=== PATIENT | female | born 1990 | race Caucasian/White ===

== ENCOUNTER 2017-03-15 23:51 | Emergency (ER) | payer SELFPAY ==
[~2017-03-15] VITALS: Ht 172.7 cm; Wt 78.2 kg
[~2017-03-15 23:51] MED LIST: LANTUS 10100 UNITS/ SC; LEVEMIR FL100 UNIT/1 SC; NOVOLOG 10100 UNITS/ SC; NOVOLOG PE100 UNITS/ SC; ONE TOUCH LANC1 EACH MC; PEN NEEDLE1 EAC9 MC; TEST STRIPS MC
[2017-03-16 00:47] LABS: HEMATOCRIT 36.1 % (36.0-46.0); MCH 28.4 PG (29.0-34.0); MCV 86.2 FL (83-99); MEAN PLAT.VOLUME 9.8 uM^3 (9.5-12.4); PLATELET COUNT 253 K/uL (156-360); RBC DIS.WIDTH-CV 12.3 % (11.8-14.6); RBC DIS.WIDTH-SD 38.5 % (39-53); RED BLOOD COUNT 4.19 M/uL (3.80-5.20); WHITE BLOOD COUNT 11.4 K/uL (4.1-10.2)
[2017-03-16 01:00] LABS: CHLORIDE 101 mEq/L (99-109); POTASSIUM 3.5 mEq/L (3.7-5.4); SODIUM 138 mEq/L (136-147)
[2017-03-16 01:02] LABS: GLUCOSE 135 mg/dL (70-99)
[2017-03-16 01:03] LABS: ANION GAP 10 MEQ/L (2-14); D-DIMER ELISA 3.87 mg/L FEU (< 0.57)
[2017-03-16 01:06] LABS: GFR ESTIMATE (CALCULATED) > 59 mL/min/; UREA NITROGEN (BUN) 18 mg/dL (9-23)
[2017-03-16 01:13] LABS: QUANTITATIVE HCG < 4.0 MIU/ML
[2017-03-16 01:14] LABS: TROP-I INTERPRETATION NEGATIVE; TROPONIN-I < 0.01 ng/mL (0.0-0.30)
[2017-03-16 02:23] VITALS: BP 130/90
== END 2017-03-16 02:24 | disposition home or self-care (01) ==
LOC: EME 23:51
PROVIDERS: Nurse Practitioner Family
DX: R09.1 Pleurisy (principal); I10 Essential (primary) hypertension; E11.9 Type 2 diabetes mellitus without complications; Z79.4 Long term (current) use of insulin; E78.5 Hyperlipidemia, unspecified; F17.200 Nicotine dependence, unspecified, uncomplicated
CPT/HCPCS: 71020; 71275; 80048; 84484; 84702; 85027; 85379; 93005; 99281; 99285; J7030

== ENCOUNTER 2017-04-10 12:19 | Emergency (ER) | payer OTHER ==
[~2017-04-10] VITALS: Ht 172.7 cm; Wt 71.8 kg
[2017-04-10 13:09] LABS: POINT-OF-CARE METER ID UU13113778
[2017-04-10 13:27] LABS: ADD MIUA? YES; BILIRUBIN NEGATIVE; BLOOD SMALL; COLOR YELLOW ((YELLOW)); GLUCOSE (STRIP) >=500; KETONES 80; LEUKOCYTES NEGATIVE; NITRITE NEGATIVE; PROTEIN (STRIP) >=500; SPECIFIC GRAVITY 1.028 (1.000-1.030); UROBILINOGEN 0.2 MG/DL (0.2-1.0)
[2017-04-10 13:39] LABS: HEMATOCRIT 45.1 % (36.0-46.0); MCH 28.1 PG (29.0-34.0); MCHC 32.8 G/DL (30.0-36.0); MCV 85.6 FL (83-99); PLATELET COUNT 302 K/uL (156-360); RBC DIS.WIDTH-CV 12.8 % (11.8-14.6); RBC DIS.WIDTH-SD 39.7 % (39-53); RED BLOOD COUNT 5.27 M/uL (3.80-5.20); WHITE BLOOD COUNT 16.6 K/uL (4.1-10.2)
[2017-04-10 13:43] LABS: BACTERIA RARE /HPF; EPITHELIAL CELLS 1+ /HPF; MUCUS TRACE /LPF; UCUL ADDED? NO; WHITE BLOOD CELLS 0-5 /HPF (0-5)
[2017-04-10 13:46] LABS: CHLORIDE 85 mEq/L (99-109); POTASSIUM 3.7 mEq/L (3.7-5.4); SODIUM 133 mEq/L (136-147)
[2017-04-10 13:49] LABS: GLUCOSE 356 mg/dL (70-99)
[2017-04-10 13:50] LABS: ANION GAP 19 MEQ/L (2-14)
[2017-04-10 13:51] LABS: TOTAL BILIRUBIN 0.3 mg/dL (0.0-1.0)
[2017-04-10 13:52] LABS: ALKALINE PHOSPHATASE 111 IU/L (3-129); GFR ESTIMATE (CALCULATED) 58 mL/min/
[2017-04-10 13:53] LABS: UREA NITROGEN (BUN) 15 mg/dL (9-23)
[2017-04-10 14:04] LABS: QUANTITATIVE HCG < 4.0 MIU/ML
[2017-04-10 14:57] LABS: CARBON DIOXIDE (BICARBONATE) 36.2 MEQ/L (20-31)
[2017-04-10 16:35] LABS: LIPASE 4 U/L (1.0-51.0)
[2017-04-10 17:53] LABS: POINT-OF-CARE METER ID UU13113800; POINT-OF-CARE USER ID LABGLH01
[2017-04-10] MEDS ORDERED: ZOFRAN ODT4 MG PO (17:53)
[2017-04-10 18:42] LABS: POINT-OF-CARE METER ID UU13113800; POINT-OF-CARE USER ID LABGLH01
[2017-04-10 18:46] VITALS: BP 126/76
== END 2017-04-10 18:59 | disposition home or self-care (01) ==
LOC: EME 12:19
PROVIDERS: Nurse Practitioner Family
DX: E13.10 Other specified diabetes mellitus with ketoacidosis without coma (principal); R10.31 Right lower quadrant pain; R11.2 Nausea with vomiting, unspecified; I10 Essential (primary) hypertension; E78.5 Hyperlipidemia, unspecified; Z79.84 Long term (current) use of oral hypoglycemic drugs; Z79.4 Long term (current) use of insulin; F17.200 Nicotine dependence, unspecified, uncomplicated
CPT/HCPCS: 74177; 80053; 81003; 82010; 82803; 82948; 83690; 84702; 85027; 99281; 99285; J2405; J7030

== ENCOUNTER → 2017-06-10 | Outpatient (CLI) | payer OTHER ==
[~2017-06-10] MED LIST changes: +METHADONE HCL40 MG PO; +SYNTHROID75 MCG PO; +ZOFRAN ODT4 MG PO
== END | disposition home or self-care (01) ==
LOC: CDC
DX: Z01.810 Encounter for preprocedural cardiovascular examination (principal)
CPT/HCPCS: 93000

== ENCOUNTER 2017-06-11 11:41 | Day surgery (SDC) | payer OTHER ==
[~2017-06-11] VITALS: Ht 172.7 cm; Wt 72.6 kg
[~2017-06-11 11:41] MED LIST changes: -METHADONE HCL40 MG PO
[2017-06-11 12:01] VITALS: BP 146/96
[2017-06-11] MEDS ORDERED: METHADONE HCL40 MG PO (12:11)
[2017-06-11 12:16] LABS: POINT-OF-CARE METER ID UU14174212
[2017-06-11 16:32] LABS: POINT-OF-CARE METER ID UU13113675
[2017-06-11 17:16] VITALS: BP 138/87
[2017-06-11 18:15] VITALS: BP 130/80
== END 2017-06-11 18:50 | disposition home or self-care (01) ==
LOC: SDC
PROVIDERS: Ophthalmology
DX: E11.3521 Type 2 diabetes mellitus with proliferative diabetic retinopathy with traction retinal detachment involving the macula, right eye (principal); H43.311 Vitreous membranes and strands, right eye; H43.11 Vitreous hemorrhage, right eye
CPT/HCPCS: 82948; J0690; J0713; J2405; J2765; J3010

== ENCOUNTER 2017-08-07 08:39 | Day surgery (SDC) | payer OTHER ==
[~2017-08-07] VITALS: Ht 172.7 cm; Wt 77.0 kg
[~2017-08-07 08:39] MED LIST changes: +METHADONE HCL40 MG PO
[2017-08-07] MEDS ORDERED: LEVOTHYROXINE88 MCG PO (09:06)
[2017-08-07] MEDS ORDERED: METHAZOLAMIDE50 MG PO (09:07)
[2017-08-07 09:15] VITALS: BP 115/88
[2017-08-07 09:19] LABS: POINT-OF-CARE METER ID UU14174212
[2017-08-07 10:39] LABS: POINT-OF-CARE METER ID UU14174212
[2017-08-07 12:31] LABS: POINT-OF-CARE METER ID UU13113675
[2017-08-07 13:02] VITALS: BP 119/80
[2017-08-07 13:35] VITALS: BP 122/72
[2017-08-08 08:58] LABS: INTERNAL CONTROL VALID? YES
== END 2017-08-07 13:45 | disposition home or self-care (01) ==
LOC: SDC
PROVIDERS: Ophthalmology
DX: H43.11 Vitreous hemorrhage, right eye (principal); E10.35 Type 1 diabetes mellitus with proliferative diabetic retinopathy; E03.9 Hypothyroidism, unspecified; Z79.4 Long term (current) use of insulin; F17.210 Nicotine dependence, cigarettes, uncomplicated
CPT/HCPCS: 82948; 84703; J0690; J0713; J2250; J2405; J2765; J3010; J7120